=== PATIENT | male | born 1950 | race Two or more races ===

== ENCOUNTER 2016-12-26 10:13 | Emergency (ER) | payer MEDICARE ==
--- NOTE | 2016-12-26 10:39 | ED Physician Chart ---
Chief Complaint/HPI - Patient Information Date Seen:: 12/26/16 Time Seen:: 10:20 Chief Complaint:: right posterior neck pain, right posterior shoulder pain and right calf alejandro History of Present Illness:: Patient was working at his computer yesterday. He reached for the power switch and fell out of the chair. No loss of consciousness. Allergies:: Allergies Allergy/AdvReac Type Severity Reaction Status Date / Time Penicillins Allergy Verified 12/26/16 10:29 Vitals:: Vital Signs - 8 hr 12/26/16 10:24 Temp 98.4 F HR 93 RR 16 BP 180/104 O2 Sat % 99 Historian:: Patient Review:: Nurse's Note Reviewed Review of Systems - Review of Systems General/Constitutional: No fever, No chills Skin: No skin lesions Head: No headache Eyes: No loss of vision ENT: No earache Neck: No neck pain, No swelling Cardio Vascular: No chest pain, No palpitations Pulmonary: No SOB GI: No nausea, No vomiting G/U: No dysuria, No frequency Musculoskeletal: Bone or joint pain Endocrine: No polyuria, No polydipsia Psychiatric: No prior psych history Hematopoietic: No bruising Allergic/Immuno: No urticaria Neurological: No syncope, No focal symptoms, No weakness, No headache, No seizure Past Medical History - Past Medical History Past Medical History: HTN, DM, Other (40 years ago the patient fell while in the [place] and x-rays later showed abnormalities of C3, C4 and C5) Family History: Diabetes Melitus, HTN Social History: Non Smoker, No Alcohol Surgical History: None Psychiatricy History: None Medication: Reviewed Family Medical History - Family Member Mother History Unknown: Yes Ethnicity: Non- Physical Exam - Physical Examination General/Constitutional: Well-developed, well-nourished, Alert, No distress Head: Atraumatic Eyes: Lids, conjuctiva normal, PERRL Skin: Nl inspection, No rash, No skin lesions, No ecchymosis, Well hydrated, No lymphadenopathy ENMT: External ears, nose nl, Lips, teeth, gums nl, Oropharynx nl, Tonsils nl Neck: No nuchal rigidity Other Neck comments:: 90 forward flexion of the neck Respiratory: Nl effort/Exclusion, Clear to Auscultation, No Wheeze/Rhonchi/Rales Cardio Vascular: RRR, No murmur, gallop, rubs, NL S1 S2 GI: No tenderness/rebounding/guarding, No organomegaly, No hernia, Normal BS's : No CVA tenderness Other Extremities comments:: Right shoulder: Tenderness over body right scapula; right lower leg: Tenderness of calf without swelling or redness Neuro/Psych: Alert/oriented, No focal deficits Other Neuro/Psych comments:: Strong equal hand grasp Labs/Radiology/EKG Results - Radiology Results Results: Venous Doppler showed no deep vein thrombosis in the right leg. X-ray right scapula was negative. CT of the cervical spine showed arthritic changes and no fracture. ED Septic Shock - . Is Septic Shock (SBP<90, OR Lactate>4 mmol\L) present?: No - <6hrs of presentation: Vital Signs: Vital Signs - 8 hr //17 10:24 Temp 98.4 F HR 93 RR 16 BP 180/104 O2 Sat % 99 Reassessment (Disposition) - Reassessment Reassessment Condition:: Unchanged - Diagnosis Diagnosis:: Contusion of back; cervical strain; right lower leg contusion - Aftercare/Follow up Instructions Aftercare/Follow-Up Instructions:: Refer to Discharge Instructions - Patient Disposition Discharge/Transfer:: Home Condition at Disposition:: Stable, Unchanged
--- NOTE | 2016-12-26 12:40 | Diagnostic Imaging Report ---
Right lower extremity DVT study HISTORY: Right calf pain COMPARISON: None Technique: Longitudinal and transverse sonographic images of the right lower extremity veins were obtained with doppler analysis. FINDINGS: There is normal compressibility, augmentation and phasicity of the right common femoral, superficial femoral, popliteal, and posterior tibial veins. No thrombus is visualized. IMPRESSION: No evidence of thrombus within the right lower extremity veins.
--- NOTE | 2016-12-26 12:46 | Diagnostic Imaging Report ---
Right scapula 3 views Indication: Trauma Comparison: none Findings: No evidence of an acute fracture. Mild subcutaneous edema is noted. No dislocation identified. Mild degenerative changes of the shoulder are noted. Impression: No evidence of an acute fracture. Mild subcutaneous edema noted. In the setting of trauma, if clinical symptoms persist and there is continued concern for an occult fracture, follow up exams in 5-7 days is suggested.
--- NOTE | 2016-12-26 12:50 | Diagnostic Imaging Report ---
Exam: Cervical spine. HISTORY: Trauma Total DLP equals 562 CTDI equals 23.2 Findings: Multiple contiguous thin section of cervical spine were obtained from the base of skull to thoracic outlet without the administration of contrast material. No prior studies available comparison. The study was performed in axial plane with coronal sagittal reconstruction techniques. The study demonstrates extensive degenerative changes of the C6 and C7 vertebral bodies with narrowing of the C6-C7 intravertebral space as well as the C7-T1 intervertebral space with severe osteophytic spurring and bridging. There is no evidence of fracture dislocation, spondylolysis or listhesis. The pedicles are intact. There is no evidence of spinal stenosis. The visualized neural foramina patent. There is evidence for extensive facet arthropathy at the lower cervical of spine level C5-C6 and C6-7 C7-T1 level. The posterior elements are intact. No prevertebral soft tissue swelling is noted. The odontoid process is normal. IMPRESSION: 1. 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 2. MRI examination might helpful
== END 2016-12-26 13:51 | disposition home or self-care (01) ==
LOC: ER 10:13
DX: S16.1XXA Strain of muscle, fascia and tendon at neck level, initial encounter (principal); S20.221A Contusion of right back wall of thorax, initial encounter; S80.11XA Contusion of right lower leg, initial encounter; Z88.0 Allergy status to penicillin; I10 Essential (primary) hypertension; E11.9 Type 2 diabetes mellitus without complications; W07.XXXA Fall from chair, initial encounter; Y93.89 Activity, other specified; Y92.89 Other specified places as the place of occurrence of the external cause; Y99.8 Other external cause status
CPT/HCPCS: 72125-TC; 73010-TC-RT; 93971-TC-RT; Z7502

== ENCOUNTER 2017-04-11 09:52 | Emergency (ER) | payer MEDICARE, OTHER ==
[2017-04-11 10:42] LABS: % BASOPHILS 0.3 % (0.0-2.0); % EOSINOPHILS 1.1 % (0.0-5.0); % MONOCYTES 14.1 % (2.0-10.0); % NEUTROPHILS 65.5 % (40.0-80.0); EOSINOPHILE ABSOLUTE 0.1 Th/cmm (0.1-0.4); HEMATOCRIT 40.8 % (41.0-60); HEMOGLOBIN 13.5 gm/dL (12-16); LYMPHOCYTE ABSOLUTE 1.4 Th/cmm (1.5-3.0); MEAN CELL VOLUME 83.8 fl (80-99); MEAN CORPUSCULAR HEMOGLOBIN 27.7 pg (27.0-31.0); NEUTROPHILE ABSOLUTE 4.7 Th/cmm (1.8-8.0); PLATELET COUNT 360 Th/cmm (150-400); RED BLOOD COUNT 4.87 Mil/cmm (3.80-5.80); RED CELL DISTRIBUTION WIDTH 13.5 % (11.5-20.0); WHITE BLOOD COUNT 7.2 Th/cmm (4.8-10.8)
--- NOTE | 2017-04-11 10:48 | ED Physician Chart ---
ED Chief Complaint/HPI - Patient Information Date Seen:: 04/11/17 Time Seen:: 10:42 Chief Complaint:: Left ankle pain due to gout History of Present Illness:: 66 yo male had intermittent pain in left knee and ankle for 2 years. He was diagnosed with gout 2 weeks ago with elevated uric acid. He was given Allopurinol 100mg bid. His pain subsequently subsided. However, the left ankle pain flared up again during past 3 days, 10/16-02/16. Rest and elevation of LLE would relieve the pain. Today, his doctor instructed the patient to come to ER. He also reported intermittent subjective fever with fatigue during past 2 weeks. Tylenol would relieve the pain. Allergies:: Allergies Allergy/AdvReac Type Severity Reaction Status Date / Time Penicillins Allergy Verified 12/26/16 10:29 Vitals:: Vital Signs - 8 hr 04/11/17 10:24 Temp 98.6 F HR 73 RR 15 BP 142/70 O2 Sat % 98 ED Review of Systems - Review of Systems General/Constitutional: Fever, No chills Skin: No skin lesions Head: No headache Eyes: No loss of vision ENT: No earache Neck: No neck pain Cardio Vascular: No chest pain Pulmonary: No SOB GI: No nausea, No vomiting G/U: No dysuria Musculoskeletal: Bone or joint pain Psychiatric: No prior psych history ED Past Medical History - Past Medical History Past Medical History: HTN, DM, Dyslipidemia Social History: Non Smoker, No Alcohol, No Drug Use Surgical History: None Family Medical History - Family Member Mother History Unknown: Yes Ethnicity: Non- Hx Family Diabetes: Yes ED Physical Exam - Physical Examination General/Constitutional: Awake, Alert Head: Atraumatic Eyes: PERRL, EOMI Skin: No skin lesions ENMT: Nasal exam nl Neck: Full ROM w/o pain Respiratory: Clear to Auscultation, No Wheeze/Rhonchi/Rales Cardio Vascular: RRR, No murmur, gallop, rubs, NL S1 S2 GI: No tenderness/rebounding/guarding Other Extremities comments:: Left ankle bilateral malleolus edema with tenderness and warmness. 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 He also had hyponatremia. Critical Care Time: 45 min Excludes all billable procedures: Yes This condition life threatening/high prob of deterioration: No Assessment/Comments:: CBC, CMP, uric acid Toradol 30mg IV x 1 NS 1L IV x 1 Discharge home Please follow up PCP or return to ER if pain persist or worsen ED Septic Shock - . Is Septic Shock (SBP<90, OR Lactate>4 mmol\L) present?: No - <6hrs of presentation: Vital Signs: Vital Signs - 8 hr 04/11/17 10:24 Temp 98.6 F HR 73 RR 15 BP 142/70 O2 Sat % 98 ED Reassessment (Disposition) - Reassessment Reassessment Condition:: Improved - Aftercare/Follow up Instructions Aftercare/Follow-Up Instructions:: Counseled pt regarding lab results/diagnosis & need follow up, Refer to Discharge Instructions - Patient Disposition Discharge/Transfer:: Home ED Discharge Plan - Patient Disposition Admit/Discharge/Transfer: PT DISCHARGED HOME Condition at Disposition: Stable Prescriptions: Indomethacin 25 mg PO BID #14 cap Instructions: Hyponatremia, [id number], Gout Additional Instructions: Pt. to DC home with prescription. Follow-up with primary MD
[2017-04-11 10:57] LABS: ALB/GLOB RATIO 1.1 (1.0-1.8); ALBUMIN 3.8 gm/dL (4.2-5.5); ALKALINE PHOSPHATASE 65 U/L (34-104); ANION GAP 8.5 (7.0-16.0); BILIRUBIN,TOTAL 0.6 mg/dL (0.3-1.0); BUN - UREA NITROGEN 17 mg/dL (7-25); CARBON DIOXIDE 29.2 mEq/L (21.0-31.0); CHLORIDE 96 mEq/L (98-107); CREATININE - SERUM 1.5 mg/dL (0.7-1.3); GFR AFRICAN-AMERICAN > 60.0 ml/min (>90); GFR NON AFRICAN-AMERICAN 49.6 ml/min; GLUCOSE 263 mg/dL; POTASSIUM SERUM 4.7 mEq/L (3.5-5.1); SGOT 17 U/L (13-39); SGPT/ALT 30 U/L (7-52); SODIUM SERUM 129 mEq/L (136-145); TOTAL PROTEIN,SERUM 7.3 gm/dL (6.0-8.3)
[2017-04-11] MEDS ORDERED: Sodium Chloride 0.9% 1,000 ML IV ONE (11:08)
== END 2017-04-11 11:55 | disposition home or self-care (01) ==
LOC: ER 09:52
DX: M25.572 Pain in left ankle and joints of left foot (principal); R50.9 Fever, unspecified; R53.83 Other fatigue; E11.9 Type 2 diabetes mellitus without complications; I10 Essential (primary) hypertension; E78.5 Hyperlipidemia, unspecified; Z88.0 Allergy status to penicillin
CPT/HCPCS: 99291; 96374; 36415; 85025; 80053; 84550; J1885; J7030; Z7502